=== PATIENT | female | born 1970 | race American Indian/Alaskan Native ===

== ENCOUNTER 2016-09-15 11:01 | Day surgery (SDC) | payer OTHER ==
[2016-09-15] MEDS ORDERED: NACL 0.9% 1000 ML 1,000 ML IV SCH (13:00)
[2016-09-15] MEDS ORDERED: DIPRIVAN 10 MG/ML IV ONE ×2 (13:02)
[2016-09-15] MEDS ORDERED: WATER FOR IRRIG STERILE IR ONE (13:13)
--- NOTE | 2016-09-15 13:15 | Anesthesia Day of Surgery ---
Anesthesia Day of Surgery - Day of Surgery Patient Examined: Yes Patient H&P Reviewed: Yes Patient is NPO: Yes
--- NOTE | 2016-09-15 13:15 | Anesthesia Consultation ---
Anesthesia Consult and Med Hx Date of service: 09/15/16 - Airway Anesthetic Teeth Evaluation: Good ROM Head & Neck: Adequate Mental/Hyoid Distance: Adequate Mallampati Class: Class II Intubation Access Assessment: Probably Good - Pulmonary Exam CTA: Yes - Cardiac Exam Cardiac Exam: RRR - Pre-Operative Health Status ASA Pre-Surgery Classification: ASA1 Proposed Anesthetic Plan: MAC - Gastrointestinal Hx Ulcer: Yes
--- NOTE | 2016-09-15 13:43 | Operative Report ---
Operative Report Operative Report: Date of procedure: 09/15/2015 Procedure: Esophagogastroduodenoscopy with multiple mucosal biopsies Attending physician: Nicolas Ahuja MD Hydraulic Boom Operator: Nicolas Ahuja MD Indication: Patient is a 46-year-old female who presented with a history of epigastric pain, typical gastroesophageal reflux symptoms with pyrosis water brash and sour brash as well as recent onset of dysphagia. An upper endoscopy is done to assess patient, so that treatment may be directed based on the endoscopic findings. Consent: Informed consent was obtained after advising the patient and family regarding nature of this procedure, its indications, potential benefits as well as possible complications including but not limited to bleeding perforation and adverse reaction to medication, infection as well as other cardiopulmonary complications. An informed written and verbal consent was then obtained after due opportunity was provided for questions and answers. Monitoring: Patient was monitored continuously with pulse oximetry and electrocardiographic recordings as well as blood pressure recordings. Vital signs remained stable throughout this procedure with no untoward events. Preoperative assessment: Patient was assessed immediately prior to this procedure for capacity to tolerate monitored anesthesia care and moderate sedation as well as general anesthesia. Patient's ASA classification is 2, Mallampati class is 2, Hyomental distance is 3. Instrument: ANT Farmn video endoscope Medications: Propofol given intravenously in divided doses. For details please refer to anesthesia records. Description of procedure: Patient was placed in the left lateral decubitus position after achieving sedation, the endoscope was introduced into the esophagus under direct vision. It was then advanced beyond the esophagus into the stomach and then beyond the stomach into the duodenum and to the second portion of the duodenum. It was subsequently withdrawn with careful inspection of all mucosal surfaces with the following findings. Findings: The esophagus appeared relatively normal however patient had an irregular Z line at 39 cm. There was a 2 cm sliding hiatal hernia seen on entering into the stomach. There was erythema in the gastric antrum. Biopsies of the antrum were obtained for histopathology. The duodenum was normal to second portion. Impression: Irregular Z line. Hiatal hernia. Gastric antral erythema. Plan: Continue treatment with proton pump inhibitors. Follow pathology report and direct additional treatment based on the pathology report.
--- NOTE | 2016-09-15 13:44 | Discharge Summary ---
Short Stay Discharge Plan Activity: advance as tolerated Weight Bearing Status: Weight Bear as Tolerated Diet: regular
[2016-09-15 14:03] VITALS: BP 110/66
--- NOTE | 2016-09-15 15:15 | Post Anesthesia Evaluation ---
- Post Anesthesia Evaluation Patient Participated: Yes Airway Patent: Yes Stable Respiratory Function: Yes Nausea/Vomiting: No Temp > 96.8F: Yes Pain Manageable: Yes Adequeate Hydration: Yes Anesthesia Complications: No
== END 2016-09-15 11:02 | disposition home or self-care (01) ==
LOC: GIO 11:01
PROVIDERS: ATTEND Internal Medicine Gastroenterology
DX: K31.89 Other diseases of stomach and duodenum (principal); K44.9 Diaphragmatic hernia without obstruction or gangrene; K22.8 Other specified diseases of esophagus; K21.9 Gastro-esophageal reflux disease without esophagitis; I10 Essential (primary) hypertension; F17.210 Nicotine dependence, cigarettes, uncomplicated; Z72.89 Other problems related to lifestyle
CPT/HCPCS: 43239; J2704; J7030; 88305; 88342

== ENCOUNTER 2018-11-27 00:25 | Emergency (ER) | payer OTHER ==
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
[2018-11-27] MEDS ORDERED: FLEXERIL PO ONE (07:23)
[2018-11-27] MEDS ORDERED: TORADOL PO NR (07:23)
[2018-11-27] MEDS ORDERED: DELTASONE PO ONE (07:23)
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
[2018-11-27 08:04] VITALS: BP 130/81
== END 2018-11-27 08:03 | disposition home or self-care (01) ==
LOC: ED 00:25
DX: M79.18 Myalgia, other site (principal); V49.49XA Driver injured in collision with other motor vehicles in traffic accident, initial encounter; Y93.89 Activity, other specified; Y92.488 Other paved roadways as the place of occurrence of the external cause; Y99.8 Other external cause status
CPT/HCPCS: 72040; 72100; 99283; J7512

== ENCOUNTER 2019-02-12 10:59 | Outpatient (CLI) | payer OTHER ==
--- NOTE | 2019-02-13 08:08 | Mammography Report ---
BILATERAL DIGITAL SCREENING MAMMOGRAM with CAD: 02/12/19 10:59:00 CLINICAL: Routine screening. COMPARISON:None available. FINDINGS: The breasts are heterogeneously dense, which may obscure small masses. No mass, architectural distortion or suspicious calcifications. IMPRESSION: No mammographic evidence of malignancy. BI-RADS CATEGORY: 1 - - Negative RECOMMENDATION: Routine mammographic screening in one year. COMMENT: Patient follow-up letters are generated by our [employer] application.
== END 2019-02-12 11:00 | disposition home or self-care (01) ==
LOC: SPVWC 10:59
PROVIDERS: ATTEND Internal Medicine
DX: Z12.31 Encounter for screening mammogram for malignant neoplasm of breast (principal); K21.9 Gastro-esophageal reflux disease without esophagitis
CPT/HCPCS: 77067